=== PATIENT | female | born 1945 | race Caucasian/White ===

== ENCOUNTER → 2017-08-25 | Outpatient (CLI) | payer MEDICARE, BC ==
[~2017-08-25] MED LIST: AUGMENTIN 875875 MG PO; NEXIUM20 M1 PO; PREDNISONE 20 M20 MG PO; VERAPAMIL E.R240 M1 PO; [UNRECOGNIZED DRUG - REMARK]
== END ==
LOC: M.RAD 09:38
DX: Z12.31 Encounter for screening mammogram for malignant neoplasm of breast (principal)

== ENCOUNTER → 2018-08-17 | Outpatient (CLI) | payer MEDICARE, BC | LOC: M.RAD 09:16 | DX: Z12.31 Encounter for screening mammogram for malignant neoplasm of breast (principal) ==

== ENCOUNTER → 2018-08-22 | Outpatient (CLI) | payer MEDICARE, BC | LOC: M.ULTRA 09:03 | DX: N64.89 Other specified disorders of breast (principal) ==

== ENCOUNTER → 2018-08-24 | Outpatient (CLI) | payer MEDICARE, BC | LOC: M.ULTRA 08:30 | DX: N64.89 Other specified disorders of breast (principal) ==

== ENCOUNTER → 2018-08-29 | Outpatient (CLI) | payer MEDICARE, BC | LOC: M.MRI 07:57 | DX: N63.22 Unspecified lump in the left breast, upper inner quadrant (principal); N63.24 Unspecified lump in the left breast, lower inner quadrant; N63.23 Unspecified lump in the left breast, lower outer quadrant; N63.21 Unspecified lump in the left breast, upper outer quadrant; N63.10 Unspecified lump in the right breast, unspecified quadrant ==

== ENCOUNTER → 2018-09-03 | Outpatient (CLI) | payer MEDICARE, BC ==
--- NOTE | 2018-09-06 10:06 | PATH ---
[address] [address] PATHOLOGY RPT PROCEDURE Name: CRYSTAL MANZANARES Room: [facility] ELEANOR Desmond#: [id number] Admission: 09/03/18 Date of : 45 Discharge: Report #: [id number] Path Case #: [id number] LCA Accession Number: [id number] . 01 Material submitted: . breast - RIGHT BREAST. Modifiers: right . 01 Clinical history: . 2.96 x 2.30 x 3.12 cm subareolar . 02 Diagnosis: Right breast, subareolar: - INFILTRATING DUCTAL ADENOCARCINOMA, HIGH-GRADE (III OF III), SPANNING 13 MM, IN ASSOCIATION WITH DUCTAL CARCINOMA IN SITU (DCIS), NUCLEAR GRADE III, COMEDO TYPE, HAVING CALCIFICATIONS. SEE COMMENT. (CLAUDIA:pit 09/05/2018) QTP/09/05/2018 . 02 Comment: Specimen type: Image guided core biopsies Tumor site: Right breast subareolar Tumor quantitation: Approximately 90% of tissues Histologic type: Ductal adenocarcinoma Histologic grade: High-grade (III of III) Tubules, nuclei and mitoses: 3, 3, 3 LVSI: Not identified Microcalcifications: Identified in DCIS Markers: Breast tumor profile pending Block: A2 . The tumor infiltrates prominently in nests having a basaloid appearance. High-grade DCIS, comedo type is seen well outside the confines of the infiltrating tumor in A2, suggesting extensive DCIS. Breast tumor profile studies are pending on A2 and will be the subject of an addendum report. Akiko (acting [facility] breast navigator) notified at approximately 1200 on . . Reviewed with Dr. Amanda Mullen who agrees with the diagnosis. (CLAUDIA:vida 09/05/2018) . 02 Electronically signed: . Nayan Long MD, Pathologist NPI- [id number] . 01 Gross description: . Received in formalin labeled "Crystal Manzanares, right breast, subareolar," are multiple needle cores of yellow-parker fibrofatty tissue measuring 2.6 x 2.4 x 0.5 cm in aggregate dimensions. The tissue [place] [address] PATHOLOGY RPT PROCEDURE Name: CRYSTAL MANZANARES Room: [facility] FRANCESCO Logan#: [id number] Admission: 09/03/18 Date of : 45 Discharge: Report #: [id number] Path Case #: [id number] in cassette A1 through A3. The cold ischemic time is 10 minutes. The total formalin fixation time is 26 hours and 46 minutes. (TSD; 09/03/2018) TOB/TOB . 02 Pathologist provided ICD-10: C50.911, D05.11 . 02 CPT . 602449 Specimen Comment: A courtesy copy of this report has been sent to Specimen Comment: [phone], , . Specimen Comment: Report sent to ,DR PALMER / DR PENNY Performed at: [address], [place], [place] [id number] MD Cornelio Nix MD Phone: [phone] Performed at: 02 [facility] [address], [place], [place] [id number] MD Nayan Long MD Phone: [phone]
== END | disposition home or self-care (01) ==
LOC: M.ULTRA 12:18
DX: C50.911 Malignant neoplasm of unspecified site of right female breast (principal); Z88.8 Allergy status to other drugs, medicaments and biological substances; Z79.899 Other long term (current) drug therapy

== ENCOUNTER → 2018-10-01 | Outpatient (CLI) | payer MEDICARE, BC ==
[~2018-10-01] MED LIST changes: +CIPRO500 MG PO; +CRESTOR5 MG PO; +FLAGYL500 M1 PO; +LISINOPRIL-HCT1 EACH PO; +LOPRESSOR50 PO; +OMEPRAZOLE 20 M20 M1 PO; +XALATAN2.5 ML OPHTHALMIC
[2018-10-01 09:21] LABS: CREATININE 0.9 mg/dL (0.6-1.3)
== END ==
LOC: M.LAB 09-26 11:06
PROVIDERS: Surgery
DX: K76.9 Liver disease, unspecified (principal); I72.8 Aneurysm of other specified arteries; R91.1 Solitary pulmonary nodule

== ENCOUNTER 2018-10-09 07:35 | Observation (INO) | payer MEDICARE, BC ==
[~2018-10-09] VITALS: Ht 167.6 cm; Wt 86.6 kg
--- NOTE | ~2018-10-09 | H ---
[address] [address] HISTORY AND PHYSICAL Name: CELSO SMILEY Eliza Room: [address] Vimal Logan#: [id number] Admission: 10/09/18 Attend Phys: Funmi Navarrete DO Discharge: 10/10/18 Date of : 45 Report #: [id number] THIS REPORT FOR: //name// Please refer to the History and Physical performed in the physician's office. By: 1203Medical Records Staff LANI /LACI
[2018-10-09 08:04] LABS: HEMATOCRIT 41.6 % (37.0-47.0); HEMOGLOBIN 14.3 gm/dL (12.0-15.0); MCH 30.8 pg (26.0-34.0); MCHC 34.3 g/dL (28.0-37.0); MCV 89.7 fL (80.0-100.0); MPV 8.3 fl. (7.2-11.1); RBC 4.64 mil/uL (4.20-5.00); RDW-CV 12.1 % (10.5-14.5); WBC 8.2 thou/uL (4.0-11.0)
[2018-10-09 08:10] LABS: CALCIUM 8.9 mg/dL (8.5-10.1); POTASSIUM 3.4 mmol/L (3.5-5.1)
[2018-10-09 08:15] LABS: ALBUMIN 3.7 g/dL (3.4-5.0); TOTAL BILIRUBIN 0.6 mg/dL (<0.1-1.0); TOTAL PROTEIN 7.2 g/dL (6.4-8.2)
--- NOTE | 2018-10-09 11:02 | EKG ---
[place] [address] ELECTROCARDIOGRAM REPORT Name: CELSO SMILEY Room: [facility]#: [id number] Admission: 10/09/18 Attend Phys: Funmi Navarrete DO Discharge: Date of : 45 Report #: [id number] THIS REPORT FOR: //name// [facility] Test Date: 2018-10-09 Test Time: 07:59:51 Pat Name: CELSO SMILEY Department: Room: Gender: F Hat Liner: QI : 1945 Requested By: Funmi Navarrete Order Number: [id number] Reading MD: Ruy Romano Measurements Intervals [place] Rate: 55 P: 58 CT: 170 QRS: -22 QRSD: 94 T: 13 QT: 462 QTc: 442 Interpretive Statements Sinus rhythm Borderline left axis deviation RSR' in V1 or V2, right VCD or RVH Compared to ECG 05/15/2009 15:52:54 Right ventricular hypertrophy now present RSR' in V1 or V2 now present Electronically Signed On 10-09-2018 11:01:52 CDT by Ruy Romano [email or web address] <ELECTRONICALLY SIGNED> By: Ruy Romano MD, FACC 10/09/18 1101 0759 [id number] Ruy Romano MD, [facility] /EPI
[2018-10-09 14:58] VITALS: BP 148/82
--- NOTE | 2018-10-09 16:04 | NUR ---
PT ARRIVED FROM PACU ABOUT 1435. A&Ox4. VITALS STABLE. ON RA. DRAINS ON L AND R SIDES OF CHEST PATENT, DRAINING. IV PATENT. UP WITH ASSIST OF 1 TO BATHROOM. DENIED N/V. DENIED PAIN MEDS. DRESSING C/D/I. SUPPORT BRA IN PLACE. FALL PRECAUTIONS IN PLACE. CALL LIGHT WITHIN REACH. WILL CONTINUE TO MONITOR.
[2018-10-09 16:30] VITALS: BP 139/70
[2018-10-09 20:05] VITALS: BP 123/60
[2018-10-09 23:56] VITALS: BP 111/49
[2018-10-10 04:00] VITALS: BP 128/57
--- NOTE | 2018-10-10 05:20 | NUR ---
PT SLEPT WELL ON AND OFF OVERNIGHT. HAS DENIED NEED FOR PAIN MED. R AND L JOSE CHEST DRAINS DRAINING SEROSANG FLUID. CAPNO ON AND OPERATING. IVF INFUSING PER PUMP. UP WITH ASSIST TO BR. SURGICAL ALEX GAUZE AND BRA CDI, ICE PACK PRN. TOLERATING CRACKERS AND FLUIDS WITHOUT N/V. NO LABS THIS MORNING. RECEIVING SCHEDULED TYLENOL. VOIDING WITHOUT DIFFICULTY. ABLE TO USE CALL LITE AND MAKE NEEDS KNOWN.
[2018-10-10 08:10] VITALS: BP 118/57
--- NOTE | 2018-10-10 10:53 | NUR ---
SW met with pt to complete initial assessment, introduce self, and SW role. Pt alert, oriented, pleasant. Pt lives at home with her . Pt son available to provide pt ride home. [place] care and bilateral drains; pt agreeable to HH services follow up and did not have a preference. SW discussed HH options and pt choice for [facility] services, SW faxed referral face sheet and H & P, orders to be faxed when available. [facility] [phone] fax [phone]
[2018-10-10 11:08] VITALS: BP 118/57
[2018-10-10 11:56] VITALS: BP 118/57
[2018-10-10 16:00] VITALS: BP 120/66
--- NOTE | 2018-10-10 16:06 | NUR ---
PT.FEELING BETTER AND WILL MOST LIKELY BE DISCHARGED THIS AFTERNOON. RN CALLING FOR DISCHARGE ORDERS. [facility] NUM[facility] [phone]. SHE WILL FAX DISCHARGE ORDERS TO [facility].
[2018-10-10] MEDS ORDERED: ROXICODONE5 M2 PO (17:07)
--- NOTE | 2018-10-10 18:19 | NUR ---
PT DISCHARGED AND LEFT UNIT AT 1820 WITH NURSING STAFF AND TO HOME WITH HOME HEALTH. DRESSING C/D/I. JOSE DRAINS PATENT. IV OUT. PT STABLE UPON DISCHARGE. PAPER SCRIPTS AND CARE NOTES GIVEN.
--- NOTE | 2018-10-14 11:10 | OP ---
[address] [address] OPERATIVE REPORT Name: CELSO SMILEY Room: [address] Vimal Logan#: [id number] Admission: 10/09/18 Attend Phys: Funmi Navarrete DO Discharge: 10/10/18 Date of : 45 Report #: [id number] THIS REPORT FOR: //name// CC: Funmi Navarrete Nikole Rubi DATE OF SERVICE: 10/09/2018 PREPROCEDURE DIAGNOSES: Right breast cancer, left breast mass, right chest wall, mole. POSTOPERATIVE DIAGNOSES: Right breast cancer, left breast mass, right chest wall, mole. SURGEON: Funmi Navarrete DO CO-SURGEON: Maia Jimenez, PGY-2 FINDINGS: Large, firm palpable mass in the subareolar area. OPERATION PERFORMED: Bilateral mastectomy and a right superficial sentinel lymph node dissection, excision of right chest wall mole. ANESTHESIA: LMA and local. ESTIMATED BLOOD LOSS: 25 mL. SPECIMENS: Bilateral breast, right sentinel lymph node, right chest wall mole. COMPLICATIONS: None. CONDITION: Stable. DISPOSITION: PACU to the floor. HISTORY OF PRESENT ILLNESS: The patient is a very pleasant female who presented to my office with a right breast mass. The mass was in the subareolar area and was firm and palpable. She underwent a biopsy of this which did confirm right breast cancer. In addition, she had a suspicious appearing left breast mass as well. She was seen by Oncology and Radiation Oncology and thereafter decided to proceed with a bilateral mastectomy and a right sentinel lymph node excision. In addition, she has a small mole or seborrheic keratosis on the upper right chest wall. She was consented for surgery. Risks were discussed to include bleeding, infection, pain, scar formation, need for further surgery, injury to nerves, arteries or veins causing chronic pain, numbness or swelling and risks of general anesthesia. The patient understood [place] [address] OPERATIVE REPORT Name: CELSO SMILEY Room: [address] Vimal Logan#: [id number] Admission: 10/09/18 Attend Phys: Funmi Navarrete DO Discharge: 10/10/18 Date of : 45 Report #: [id number] proceed. DESCRIPTION OF PROCEDURE: The patient initially presented to preop and was then taken to radiology where she underwent a right breast nuclear medicine injection. She was then taken preop where she underwent informed consent. She was then taken to the OR where she was laid supine on the operating room table. SCDs were placed on bilateral lower extremities. Antibiotics were given in the perioperative period. General LMA anesthesia was induced by Anesthesia without difficulty. A 5 mL of Lymphazurin blue dye were injected in the right periareolar area. Bilateral breasts and axilla were prepped and draped in standard sterile fashion. Timeout was performed to verify the patient and procedure. We began with the left breast, which was the noncancerous side are clavicle, sternum, inframammary fold and latissimus dorsi were marked out bilaterally. Elliptical incisions were then marked out bilaterally as well. A 20 mL of 0.5% Marcaine were injected along the planned incisions on the left. Incisions were made with a #10 blade. Cautery was used for hemostasis. We then began forming flaps initially moving superiorly towards the clavicle, medially to the sternum, inferiorly to the inframammary fold and laterally to the latissimus dorsi. Allis clamps were used to gently elevate the breast tissue off the pectoralis and the breast tissue was then amputated from the underlying pectoralis fascia. Specimen was marked in the superior and lateral direction and was handed off for permanent pathology. Hemostasis was assured. Wound was copiously irrigated. It was then gently packed with a moistened lap and covered with a blue towel while we turned our attention to the right side. A 20 mL of 0.5% Marcaine were injected along the planned incision. We then moved in the same fashion as on the left side forming our incision with #15 blade. Cautery was used for hemostasis. Cautery was then used to formulate our flaps again moving superiorly to the clavicle, medially to the sternum, inferiorly to the inframammary fold and laterally to the latissimus dorsi. Breast tissue was amputated from the underlying pectoralis fascia utilizing cautery. Specimen was once again marked in the superior and lateral direction before it was handed off. The nipple was interrogated using the Neoprobe and the highest uptake we achieved was approximately 4300. Specimen was then handed off for permanent pathology. Our axilla was then interrogated. We had very good uptake just inside the axillary fat pad. In addition, there was a clear blue line of lymphatics heading straight to a fairly good sized sentinel lymph node. This area was tied, gently dissected free using a combination of blunt and cautery dissection out of the field. The highest uptake on this lymph node was 1200. This was then marked as the right superficial sentinel lymph node and was handed off for permanent pathology. Hemostasis was assured within this wound as well. Wound was also copiously irrigated until clear. We then took a moment to excise what appeared to be a small right seborrheic keratosis just along the right clavicle. It was not sent for permanent pathology. Porsha was then sprinkled along both wounds, bilateral 15-Turkish JOSE drains were placed through the lower flaps. Both wounds were then closed in a layered fashion using deep and superficial stitches of 3-0 Vicryl in inverted [place] [address] OPERATIVE REPORT Name: CELSO SMILEY Room: [address] Vimal Logan#: [id number] Admission: 10/09/18 Attend Phys: Funmi Navarrete DO Discharge: 10/10/18 Date of : 45 Report #: [id number] were closed with running 4-0 Monocryl. Wounds were then cleansed and covered with skin glue. Drains were sutured into place using nylon. The drains were then covered with 4 x 4's and a Tegaderm. The patient was then allowed to wake from anesthesia, was extubated and transported to the recovery room with no further difficulties. Surgical bra was placed in the OR. <ELECTRONICALLY SIGNED> By: Funmi Nvaarrete DO 10/14/18 1110 0931 1002Chcosme Navarrete DO /nt
--- NOTE | 2018-10-15 17:06 | PATH ---
[address] [address] PATHOLOGY RPT PROCEDURE Name: CRYSTAL MANZANARES Room: [address] Vimal Logan#: [id number] Admission: 10/09/18 Date of : 45 Discharge: 10/10/18 Report #: [id number] Path Case #: [id number] LCA Accession Number: [id number] . 01 Material submitted: . PART A: breast - LEFT BREAST, LONG LATERAL, SHORT SUPERIOR. Modifiers: left, lateral, superior PART B: breast - RIGHT BREAST, LONG LATERAL, SHORT SUPERIOR. Modifiers: right, lateral, superior PART C: lymph node - RIGHT SENTINEL LYMPH NODE. Modifiers: right . 01 Clinical history: . Infiltrating ductal carcinoma, right breast . 02 Diagnosis: A. Left breast: - Benign breast including skin with fibroadenoma, fibrosis, usual ductal epithelial hyperplasia and mild chronic inflammation and scattered luminal calcifications, negative for atypia. . B. Right breast: - INFILTRATING DUCTAL ADENOCARCINOMA, HIGH GRADE (III/III), SPANNING 21 MM, ADJACENT TO PRIOR BIOPSY SITE WITH ALL SURGICAL MARGINS FREE BY AT LEAST 25 MM. - Benign skin with seborrheic keratosis. (See comment). . C. Right sentinel lymph node: - One benign lymph node. (See comment). . (CLAUDIA:mml; 10/12/2018) QLM/10/12/2018 . 02 Comment: Surgical Pathology Cancer Case Summary . INVASIVE CARCINOMA OF THE BREAST: Resection . . Procedure ___ Total mastectomy (including nipple-sparing and skin-sparing mastectomy) . Specimen Laterality ___ Right . + Tumor Site + ___ [place] [address] PATHOLOGY RPT PROCEDURE Name: CRYSTAL MANZANARES Room: [address] Vimal Logan#: [id number] Admission: 10/09/18 Date of : 45 Discharge: 10/10/18 Report #: [id number] Path Case #: [id number] Tumor Size ___ Greatest dimension of largest invasive focus >1 mm (specify exact measurement) (millimeters): 21 mm . Histologic Type ___ Invasive carcinoma of no special type (invasive ductal carcinoma, not otherwise specified) . Histologic Grade ([place] Histologic Score) Glandular (Acinar)/Tubular Differentiation ___ Score 3 (<10% of tumor area forming glandular/tubular structures) . Nuclear Pleomorphism ___ Score 3 (vesicular nuclei, often with prominent nucleoli, exhibiting marked variation in size and shape, occasionally with very large and bizarre forms) . Mitotic Rate ___ Score 3 . Overall Grade ___ Grade 3 (scores of 8 or 9) . + Tumor Focality + ___ Single focus of invasive carcinoma . Ductal Carcinoma In Situ (DCIS) ___ Present + ___ Negative for extensive intraductal component (EIC) . + Size (Extent) of DCIS + Estimated size (extent) of DCIS is at least (millimeters) 1 mm + Number of blocks with DCIS: 1 + Number of blocks examined: 18 . + Architectural Patterns + ___ Comedo + ___ Cribriform . + Nuclear Grade + ___ Grade III (high) . + Necrosis + ___ Present, central (see comment) . + Lobular Carcinoma In Situ (LCIS) + ___ No LC[place] [address] PATHOLOGY RPT PROCEDURE Name: CRYSTAL MANZANARES Room: [address] Vimal Logan#: [id number] Admission: 10/09/18 Date of : 45 Discharge: 10/10/18 Report #: [id number] Path Case #: [id number] ___ Uninvolved by invasive carcinoma Specify closest margin (required only if <10mm): ___ Cannot be determined (explain): Not measured to specific margin,but at least 25 mm away from closest . DCIS Margins ___ Uninvolved by DCIS Specify closest margin (required only if <10mm): Unknown but at least 25 mm from closest . Regional Lymph Nodes ___ Uninvolved by tumor cells Number of Lymph Nodes Examined: 1 Number of [place] Nodes Examined: 1 . . Treatment Effect + ___ No known presurgical therapy . + Lymphovascular Invasion + ___ Not identified . + Dermal Lymphovascular Invasion + ___ Not identified . PATHOLOGIC STAGE CLASSIFICATION (pTNM, AJCC 8th Edition) . Primary Tumor (pT) ___ pT2:Tumor >20 mm but =50 mm in greatest dimension . Regional Lymph Nodes (pN) Modifier ___ (sn):[place] node(s) evaluated. . Category (pN) ___ pN0:No regional lymph node metastasis identified or ITCs only . Additional Pathologic Findings: Seborrheic keratosis . + Ancillary Studies + Breast Biomarker Testing Performed on Previous Biopsy Performed previously on [id number], A2 . + Estrogen Receptor (ER) + ___ Positive 95% . + Progesterone Receptor (PgR) + ___ Positive 8% [place] [address] PATHOLOGY RPT PROCEDURE Name: CRYSTAL MANZANARES Room: [address] Vimal Logan#: [id number] Admission: 10/09/18 Date of : 45 Discharge: 10/10/18 Report #: [id number] Path Case #: [id number] . + HER2 (by immunohistochemistry) Not over-expressed/1+, Ki-67 35% . + Microcalcifications + ___ Present in DCIS (See comment) + ___ Present in non-neoplastic tissue . + Clinical History + ___ Prior history of breast cancer identified on subareolar right breast core biopsies showing infiltrating ductal adenocarcinoma, high grade, spanning 13 mm, associated with ductal carcinoma in situ nuclear grade 3, comedo type with calcifications ([id number]). . (CLAUDIA:[facility]; 10/12/2018) . . . COMMENT: Only a single focus of cribriform DCIS is seen in the mastectomy specimen (B1), although the prior subareolar core biopsy also showed high grade DCIS comedo type and associated with calcifications. The invasive tumor is seen to invade smooth muscle of the nipple areolar complex without DCIS seen in nipple ducts and without involvement of skin or dermal lymphatics. Properly-controlled keratin AE1/AE3 stains performed on C1 and C2 reveal no evidence of metastatic tumor. . (CLAUDIA:[facility]; 10/12/2018) . 02 Electronically signed: . Nayan Long MD, Pathologist NPI- [id number] . 01 Gross description: . A. Received in formalin labeled" Crystal Manznaares, left breast, long lateral, short superior ", is an oriented left simple mastectomy specimen weighing 1164 g and measuring 23 x 18 x 5.5 cm, with an overlying luis-white ellipse of skin, 22 x 12.5 cm containing a 4.7 x 4.2 cm nipple-areola complex with a 0.7 cm in diameter everted nipple. The deep margin is covered by smooth fascia with no skeletal muscle present. The specimen is oriented with sutures: Short suture = superior and long suture = lateral. The specimen is inked as follows: anterior/superior = blue, anterior/inferior = green and deep black. The specimen is serial sectioned from medial to lateral to reveal a parker-white, indurated area in the central portion. The remaining parenchyma is predominantly yellow, lobulated fatty, with parker-white fibrous strands interspersed in the approximate ratio of 70:30. Representatively submitted as follows: A1. [place] [address] PATHOLOGY RPT PROCEDURE Name: CRYSTAL MANZANARES Room: [address]#: [id number] Admission: 10/09/18 Date of : 45 Discharge: 10/10/18 Report #: [id number] Path Case #: [id number] A2-A6. Fibrous tissue, Central. A7 - A8. Upper outer quadrant. A9-A10. Lower outer quadrant. A11-A12. Lower inner quadrant. A13-A14. Upper inner quadrant. Specimen excised at: 1106 on 10/09/18, placed in formalin at: 1111 on 10/09/18, formalin exposure: Approximately 36 hours and 29 minutes. . After initial consultation, additional section from each quadrant is submitted as follows: A15. Upper outer quadrant. A16. Lower outer quadrant. A17. Lower inner quadrant. A18. Upper inner quadrant. ([facility]; 10/11/2018) . B. Received in formalin labeled"Leighton Tonya, right breast, long lateral, short superior ", is an oriented right simple mastectomy specimen weighing 1088 g and measuring 22 x 21 x 4.5 cm, with an overlying luis-white ellipse of skin, 20 x 16.5 cm containing a 6.0 x 6.0 cm nipple-areola complex with a 1.0 cm in diameter flat and crusted nipple. The areola and surrounding skin is covered by purple dye. There is a dome-shaped, verrucous lesion measuring 1.5 x 1.0 x 0.3 cm, that is 9.0 cm lateral to the nipple and 0.8 cm from the anterior inferior skin margin. The deep margin is covered by smooth fascia with no skeletal muscle present. The specimen is oriented with sutures: Long = lateral and short = superior. The specimen is inked as follows: anterior/superior = blue, anterior/inferior = green and deep black. Specimen is serial sectioned from lateral to medial to reveal a solid, hemorrhagic previous biopsy site/mass surrounded by fat necrosis, that is contiguous with the nipple and approximately measuring 2.2 x 1.7 x 1.1 cm. This mass is greater than 2.5 cm from all the margins. The remaining parenchyma is predominantly yellow, lobulated fatty, with parker-white strands interspersed in the approximate ratio 70:30. Representatively submitted as follows: B1. Nipple and underlying soft tissue. B2. Skin, verrucous lesion. B3. Skin. B4- B9. Previous biopsy site/mass from medial to lateral. B10. Anterior superior margin closest to biopsy site/mass. B11. Medial margin closest to biopsy site/mass. B12. Anterior inferior margin closest to biopsy site/mass. B13. Lateral margin closest to biopsy site/mass B14. Deep margin closest to biopsy site/mass. B15 - B16. Upper inner quadrant. B17-B18. Lower inner quadrant. B19-B20. Lower outer quadrant. B21-B22. Upper outer quadrant. Specimen excised at: 1152 on 10/09/18, placed in formalin at: 1156 [place] [address] PATHOLOGY RPT PROCEDURE Name: CRYSTAL MANZANARES Room: [address] Vimal Logan#: [id number] Admission: 10/09/18 Date of : 45 Discharge: 10/10/18 Report #: [id number] Path Case #: [id number] 10/09/18, formalin exposure: Approximately 35 hours and 44 minutes. . After initial consultation, additional section from each quadrant is submitted as follows: B23. Upper inner quadrant. B24. Lower inner quadrant. B25. Lower outer quadrant. B26. Upper outer quadrant. ([facility]; 10/11/2018) . C. The specimen is received in formalin, labeled "Crystal Manzanares, right sentinel lymph node", is a yellow lobulated adipose tissue measuring 3.3 x 2.0 x 1.7 cm within which is a luis-pink, rubbery lymph node measuring 2.0 x 1.0 x 0.7 cm. The lymph node is serially sectioned and entirely submitted in C1-C2. ([facility]; 10/10/2018) SHS/SHS . 02 Pathologist provided ICD-10: D24.2, N60.32, N60.92, N61.0, C50.911, L82.1 . 02 CPT . 706673, 582754, 488382, Z21904 Specimen Comment: A courtesy copy of this report has been sent to Specimen Comment: [phone], . Specimen Comment: Report sent to / DR XIONG Performed at: 01 [facility] [address], [place], [place] [id number] MD Cornelio Nix MD Phone: [phone] Performed at: [address] [facility] [address] [id number] MD Nayan Long MD Phone: [phone]
== END 2018-10-10 18:20 | disposition home or self-care (01) ==
LOC: M.SUR 07:35 → M.NUC 09:00 → M.SUR 09:00 → EDSTATUS 09:00 → M.TBA 12:51 → M.ORTHSURG 12:51
PROVIDERS: ADMIT Surgery
DX: C50.911 Malignant neoplasm of unspecified site of right female breast (principal); Z88.5 Allergy status to narcotic agent

== ENCOUNTER 2018-11-16 15:26 | Emergency (ER) | payer MEDICARE, BC ==
[~2018-11-16] VITALS: Ht 167.6 cm; Wt 85.3 kg
[~2018-11-16 15:26] MED LIST changes: +ROXICODONE5 M2 PO
[2018-11-16] MEDS ORDERED: [UNRECOGNIZED DRUG - OTHER] (15:37)
[2018-11-16] MEDS ORDERED: CYTOXAN (15:38)
[2018-11-16 16:08] LABS: HEMATOCRIT 40.3 % (37.0-47.0); HEMOGLOBIN 13.7 gm/dL (12.0-15.0); MCH 30.6 pg (26.0-34.0); MCV 90.1 fL (80.0-100.0); MPV 9.1 fl. (7.2-11.1); NUCLEATED RBCS 0 /100WBC; PLATELET COUNT* 294 thou/uL (150-400); RBC 4.47 mil/uL (4.20-5.00); RDW-CV 12.8 % (10.5-14.5); WBC 13.4 thou/uL (4.0-11.0)
[2018-11-16 16:17] LABS: ANION GAP 11 mmol/L (7-16); BUN 26 mg/dL (7-18); CALCIUM 8.8 mg/dL (8.5-10.1); CHLORIDE 99 mmol/L (98-107); CO2 29 mmol/L (21-32); GLUCOSE 105 mg/dL (70-99); POTASSIUM 3.4 mmol/L (3.5-5.1); SODIUM 139 mmol/L (136-145)
[2018-11-16 16:18] LABS: PROTIME 10.2 Seconds (9.20-11.50)
[2018-11-16 16:28] LABS: ALBUMIN 3.9 g/dL (3.4-5.0); ALKALINE PHOSPHATASE 73 U/L (46-116); NT-PRO BRAIN NAT PEPTIDE 518 pg/mL (<300); SGOT 20 U/L (15-37); SGPT 25 U/L (30-65); TOTAL BILIRUBIN 0.3 mg/dL (<0.1-1.0); TOTAL PROTEIN 7.2 g/dL (6.4-8.2); TROPONIN-I LEVEL <0.06 ng/mL (<0.06)
[2018-11-16 16:30] LABS: ABSOLUTE LYMPHOCYTES 1.5 thou/uL (0.8-5.3); ABSOLUTE MONOCYTES 0.5 thou/uL (0.0-1.2); ABSOLUTE NEUTROPHILS 11.4 thou/uL (1.6-8.1); PLATELET ESTIMATE ADEQUATE
[2018-11-16 17:51] VITALS: BP 167/83
--- NOTE | 2018-11-19 13:01 | EKG ---
[place] [address] ELECTROCARDIOGRAM REPORT Name: CELSO SMILEY Room: [facility]#: [id number] Admission: 11/16/18 Attend Phys: Discharge: 11/16/18 Date of : 45 Report #: [id number] THIS REPORT FOR: //name// [facility] ED Test Date: 2018-11-16 Test Time: 15:38:28 Pat Name: CELSO SMILEY Department: Room: Gender: F Planning Feeder: : 1945 Requested By: Reyes Rodriguez Order Number: [id number] MD: Jaime Resendiz Measurements Intervals Echo Rate: 62 P: 48 PA: 149 QRS: -14 QRSD: 98 T: 13 QT: 480 QTc: 488 Interpretive Statements Sinus rhythm Probable left atrial enlargement RSR' in V1 or V2, right VCD or RVH Borderline prolonged QT interval Compared to ECG 10/09/2018 07:59:51 No significant changes Electronically Signed On 11-19-2018 13:01:34 CDT by Jaime Resendiz [email or web address] <ELECTRONICALLY SIGNED> By: Jaime Resendiz MD, [facility] 11/19/18 1301 1538 1538 Jaime Resendiz MD, [facility] /EPI
== END 2018-11-16 17:52 | disposition home or self-care (01) ==
LOC: M.ERS 15:26
PROVIDERS: Emergency Medicine
DX: R06.02 Shortness of breath (principal); C50.912 Malignant neoplasm of unspecified site of left female breast; C50.911 Malignant neoplasm of unspecified site of right female breast; I10 Essential (primary) hypertension; E78.5 Hyperlipidemia, unspecified; K21.9 Gastro-esophageal reflux disease without esophagitis; Z98.890 Other specified postprocedural states; Z86.711 Personal history of pulmonary embolism; Z90.13 Acquired absence of bilateral breasts and nipples; Z88.5 Allergy status to narcotic agent

== ENCOUNTER 2018-11-22 20:19 | Inpatient (IN) | payer MEDICARE, BC ==
[~2018-11-22] VITALS: Ht 167.6 cm; Wt 86.8 kg
[~2018-11-22 20:19] MED LIST changes: +CYTOXAN; +[UNRECOGNIZED DRUG - OTHER]
[2018-11-22 20:29] VITALS: BP 148/76
[2018-11-22 21:08] LABS: HEMATOCRIT 36.3 % (37.0-47.0); HEMOGLOBIN 12.7 gm/dL (12.0-15.0); MCH 31.2 pg (26.0-34.0); MCV 89.3 fL (80.0-100.0); MPV 8.8 fl. (7.2-11.1); NUCLEATED RBCS 1 /100WBC; PLATELET COUNT* 211 thou/uL (150-400); RBC 4.07 mil/uL (4.20-5.00); RDW-CV 12.5 % (10.5-14.5)
[2018-11-22 21:09] LABS: WBC 1.9 thou/uL (4.0-11.0)
[2018-11-22 21:16] LABS: CALCIUM 8.4 mg/dL (8.5-10.1); CREATININE 0.9 mg/dL (0.6-1.3)
[2018-11-22 21:17] LABS: INR 1.1; PROTIME 11.1 Seconds (9.20-11.50)
[2018-11-22 21:26] LABS: ALBUMIN 2.9 g/dL (3.4-5.0); TOTAL BILIRUBIN 0.9 mg/dL (<0.1-1.0)
[2018-11-22 21:42] LABS: ABSOLUTE LYMPHOCYTES 1.3 thou/uL (0.8-5.3); ABSOLUTE MONOCYTES 0.4 thou/uL (0.0-1.2); ABSOLUTE NEUTROPHILS 0.2 thou/uL (1.6-8.1); ATYPICAL LYMPHS 6 %
[2018-11-22 21:43] LABS: ANISOCYTOSIS 1+; HYPOCHROMASIA 2+; PLATELET ESTIMATE ADEQUATE; TOXIC GRANULATION 1+
[2018-11-22 22:30] VITALS: BP 147/80
[2018-11-22 22:40] VITALS: BP 147/80
[2018-11-23] MEDS ORDERED: VENTOLIN HFA 1818 GM INH (02:44)
[2018-11-23 04:00] VITALS: BP 121/61
--- NOTE | 2018-11-23 05:35 | NUR ---
REPORT RECIEVED FROM ER. PT ORIENTED ROOM, CALL LIGHT SHOWN, FALL AGREEMENT GONE OVER, PT STATED UNDERSTANDING. ADMISSION DOCUMENTED. MEDS GIVEN PER E-MAR. ORDER FOR TYLENOL RECIEVED FOR PT'S BACK PAIN AND HEADACHE. POTASSIUM REPLACED. WILL CONTINUE WITH PLAN OF CARE.
[2018-11-23 08:15] VITALS: BP 123/64
--- NOTE | 2018-11-23 13:51 | NUR ---
PT.ALERT AND ORIENTED. LIVES WITH . USES A CANE FOR AMBULATION NEEDED. IS NORMALLY INDEPENDENT AT HOME. WEAK AT TIMES. SHE WAS A WEEK POST CHEMO TX AND SHE STARTED RUNNING FEVER AT HOME. HAD AGUEDA.MASTECTOMIES IN OCT. USED [facility] AT THAT TIME. SHOULD NOT HAVE ANY NEEDS AT DISCHARGE.
--- NOTE | 2018-11-23 16:17 | NUR ---
PATIENT HAD EPISODES OF DIARRHEA THIS SHIFT, STOOL SAMPLE WAS SENT FOR STOOL CULTURE. PATIENT NOTIFIED THAT STOOL SAMPLE WAS NEEDED FOR CDIFF, ISOLATION PRECUATIONS PLACED AND PATIENT NOTIFIED. IVF RESTARTED TO LEFT FORARM, IVF AND SCHED ABX INFUSING ORDERED. UP AD MANUELITO. PRN ZOFRAN GIVEN X 1 THIS SHIFT FOR NAUSEA. NO COMPLAINTS OF PAIN.
[2018-11-23 16:32] VITALS: BP 133/66
--- NOTE | 2018-11-23 20:10 | EKG ---
[place] [address] ELECTROCARDIOGRAM REPORT Name: CLESO SMILEY Room: [address] ADM IN [facility].#: [id number] Admission: 11/22/18 Attend Phys: Francoise Pruitt MD Discharge: Date of : 45 Report #: [id number] THIS REPORT FOR: //name// [facility] ED Test Date: 2018-11-22 Test Time: 21:03:55 Pat Name: CELSO SMILEY Department: Room: [facility] Gender: F Group Sales Manager: : 1945 Requested By: Livia Martínez Order Number: [id number] MD: Dick Flynn Measurements Intervals [place] Rate: 98 P: 8 ID: [id number] QRS: -37 QRSD: 90 T: 1 QT: 368 QTc: 470 Interpretive Statements Sinus rhythm Left axis deviation RSR' in V1 or V2, right VCD or RVH Borderline T abnormalities, anterior leads Compared to ECG 11/16/2018 15:38:28 Left-axis deviation now present T-wave abnormality now present Electronically Signed On 11-23-2018 20:09:44 CDT by Dick Flynn [email or web address] <ELECTRONICALLY SIGNED> By: Gay Flynn MD, [facility] 11/23/182008 02 02 Gay Flynn MD, [facility] /EPI
[2018-11-23 21:10] VITALS: BP 137/66
[2018-11-24 04:11] LABS: ABSOLUTE EOSINOPHILS 0.1 thou/uL (0.0-0.7); ABSOLUTE LYMPHOCYTES 2.5 thou/uL (0.8-5.3); ABSOLUTE MONOCYTES 0.7 thou/uL (0.0-1.2); ABSOLUTE NEUTROPHILS 9.8 thou/uL (1.6-8.1); BASOPHILS 0.2 %; EOSINOPHILS 0.5 %; HEMATOCRIT 32.5 % (37.0-47.0); HEMOGLOBIN 10.9 gm/dL (12.0-15.0); LYMPHOCYTES 19.1 %; MCH 30.3 pg (26.0-34.0); MCHC 33.6 g/dL (28.0-37.0); MCV 90.2 fL (80.0-100.0); MONOCYTES 5.2 %; MPV 8.6 fl. (7.2-11.1); NUCLEATED RBCS 0 /100WBC; PLATELET COUNT* 208 thou/uL (150-400); RDW-CV 12.5 % (10.5-14.5)
[2018-11-24 04:27] LABS: CALCIUM 8.1 mg/dL (8.5-10.1); CREATININE 0.8 mg/dL (0.6-1.3); POTASSIUM 3.7 mmol/L (3.5-5.1)
[2018-11-24 04:44] LABS: WBC 13.1 thou/uL (4.0-11.0)
--- NOTE | 2018-11-24 06:25 | NUR ---
PATIENT REPORTED NO PAIN. GAVE 1 DOSE VANC IV AND CONTINUED FLUIDS. SHE TOOK A SHOWER AND WAS UP THROUGH MOST OF THE NIGHT. RIGHT LIMB ALERT. DID NOT HAVE A STOOL FOR SENDING TO THE LAB. WILL CONTINUE TO MONITOR
[2018-11-24 07:35] VITALS: BP 150/72
--- NOTE | 2018-11-24 17:05 | NUR ---
PT REMAINED ALERT AND ORIENTED. PT RESTING IN ROOM. IV ABX GIVEN ORDERED. PT C/O NAUSEA ONCE THIS SHIFT, MEDS GIVEN ORDERED. PT DENIES ANY FURTHER NEEDS AT THIS TIME. FALL RISK PRECAUTIONS IN PLACE. HOURLY ROUNDING COMPLETED. WILL CONTINUE TO MONITOR.
[2018-11-24 20:00] VITALS: BP 147/66
[2018-11-25 04:42] LABS: ABSOLUTE LYMPHOCYTES 2.3 thou/uL (0.8-5.3); ABSOLUTE MONOCYTES 0.8 thou/uL (0.0-1.2); BASOPHILS 0.3 %; EOSINOPHILS 0.2 %; HEMATOCRIT 35.2 % (37.0-47.0); HEMOGLOBIN 11.8 gm/dL (12.0-15.0); LYMPHOCYTES 13.7 %; MCH 30.1 pg (26.0-34.0); MCHC 33.4 g/dL (28.0-37.0); MONOCYTES 4.4 %; MPV 8.4 fl. (7.2-11.1); NUCLEATED RBCS 0 /100WBC; PLATELET COUNT* 225 thou/uL (150-400); POLYS 81.4 %; RBC 3.91 mil/uL (4.20-5.00); WBC 17.2 thou/uL (4.0-11.0)
[2018-11-25 04:52] LABS: CALCIUM 8.7 mg/dL (8.5-10.1); CREATININE 0.8 mg/dL (0.6-1.3); POTASSIUM 3.1 mmol/L (3.5-5.1)
--- NOTE | 2018-11-25 05:05 | NUR ---
PATIENT ALERT/ORIENTED X4, PLEASANT. PT DENIES PAIN/NAUSEA/VOMITING. PT UP AD MANUELITO IN ROOM AND TO BATHROOM. PT SAID SHE HAS HAD 'A FEW' LOOSE STOOLS YESTERDAY AND LAST NIGHT. PT IS ON ROOM AIR, LUNG SOUNDS CLEAR. PT WITH ANTIBIOTICS INFUSING PER DR ORDER. PT REMAINS IN SPECIAL CONTACT ISOLATION. WILL CONTINUE TO MONITOR.
[2018-11-25 07:15] VITALS: BP 151/77
[2018-11-25 08:35] VITALS: BP 151/77
[2018-11-25] MEDS ORDERED: CIPRO500 M1 PO (08:35)
--- NOTE | 2018-11-25 13:23 | NUR ---
PT REMAINED ALERT AND ORIENTED. IV REMOVED. PRESCRIPTIONS, CARE NOTES, AND DISCHARGE INSTRUCTIONS GIVEN. PT LEFT AMBULATORY WITH NURSING STAFF AND SON TO HOME. FALL RISK PRECAUTIONS IN PLACE. HOURLY ROUNDING COMPLETED.
--- NOTE | 2018-11-26 07:39 | CON ---
[address] [address] CONSULTATION Name: CELSO SMILEY Room: [address] IN ..#: [id number] Admission: 11/22/18 Attend Phys: Francoise Pruitt MD Discharge: 11/25/18 Date of : 45 Report #: [id number] THIS REPORT FOR: //name// CC: Francoise Pruitt Nikole Venegas Chayito Mckeon DATE OF SERVICE: 11/23/2018 INFECTIOUS DISEASE CONSULTATION ATTENDING PHYSICIAN: Dr. Pruitt. REASON FOR EVALUATION: Neutropenic fever. HISTORY OF PRESENT ILLNESS: Chart reviewed, patient examined. This is a 73-year-old woman with a recent history of breast cancer involving the right breast. She has undergone initial round of chemotherapy roughly 8 days ago. She notes throughout the entire course, has been complicated with apparent adverse drug effects, also more recently has developed progressive weakness, fevers, was evaluated over the course of last week or so at least 2 occasions; most recently yesterday, the prior day of admission, was found to be leukopenic with ANC of 200. Subsequently, developed what sounds like true rigors, shaking chills, high-grade temperatures in excess of 101 degrees Fahrenheit. She has had some degree of respiratory distress with some difficulty breathing. She notes does have a background of asthma that sometimes exacerbates. She has had some recent loose stools as well; initially had abdominal pain, this is resolved. She is not encephalopathic. She has had some headaches. Denies any sinus or teeth-related complaints. No sore throat. Does have generalized pain, she described the source as being stuck by needles. It was noted on evaluation, was febrile. Initial chest x-ray was otherwise unrevealing. Elevated blood sugar to 176, albumin 2.9, anion gap was only 9. CBC: ANC of 200. Lactic acid initially 2.2, repeat was 1.3. Blood cultures are pending. Empirically dosed with piperacillin and tazobactam. At this point, as noted above, she is not encephalopathic. ALLERGIES: MORPHINE AND CODEINE. MEDICINES: Currently include metoprolol, pantoprazole, enoxaparin, p.r.n. analgesics, antiemetics, taking a single dose of piperacillin/tazobactam. PAST MEDICAL HISTORY: As noted above, right-sided breast cancer, history of hypertension, left total knee arthroplasty, reflux, umbilical hernia repair, history of glaucoma, hyperlipidemia. SOCIAL HISTORY: Nonsmoker. No ethanol. [place] [address] CONSULTATION Name: CELSO SMILEY Room: [address] IN [facility].#: [id number] Admission: 11/22/18 Attend Phys: Francoise Pruitt MD Discharge: 11/25/18 Date of : 45 Report #: [id number] FAMILY HISTORY: Noncontributory. REVIEW OF SYSTEMS: Otherwise, unremarkable 10-point review of systems except noted above. PHYSICAL EXAMINATION: GENERAL: She is alert, cooperative, jtgg-na-nuekjozs distress. At this point, she is not encephalopathic. She is not overtly toxic-appearing, appears reasonably well nourished. VITAL SIGNS: Most recent temperature 98.4 with a T-max recorded here of 99.6, pulse 84, respirations 18, blood pressure 123/64. SKIN: Warm. There is no evident rash. HEENT: Normocephalic. Extraocular muscles are intact. NECK: Supple. LUNGS: Generally clear to auscultation. HEART: Regular. I do not appreciate a murmur. ABDOMEN: Soft, nontender and nondistended. There are no peritoneal signs. EXTREMITIES: No distal lower extremity edema. GENITOURINARY: Deferred. RECTAL: Deferred. LABORATORY DATA: Blood cultures sterile thus far. Serial lactic acid of 2.2 and 1.3. CBC: White count total of 1.9, ANC of 200, H and H 12.7 and 36.3, platelets of 211. Electrolytes: Sodium 137, potassium 3.0, chloride 99, bicarbonate is 29, anion gap of 9, BUN and creatinine 15 and 0.9, glucose of 179, AST of 16, ALT of 21, albumin of 2.9, total protein 6.0, estimated GFR of 61. Plain film of the chest is otherwise unremarkable. ASSESSMENT: Fevers in the setting of neutropenia. The patient has had recent initial round of chemotherapy for breast cancer and certainly would be concerned about possibility of occult pyogenic infection. We will continue antimicrobial therapy with specifically antibacterials. Did have some loose stools. If does persist, certainly, we will send off studies in addition to the blood cultures. At this point, there is no evidence of respiratory tract infection. See how she does clinically. Expectation is white count should be trending up in the next 1-3 days. <ELECTRONICALLY SIGNED> By: Maximo Orozco MD 11/26/18 [id number] Orozco MD /nt
== END 2018-11-25 13:25 | disposition home or self-care (01) | DRG 872 ==
LOC: M.ERS 20:19 → M.ORTHSURG 21:49 → M.TBA-ER 21:49 → M.ORTHSURG 22:37
PROVIDERS: Emergency Medicine; Internal Medicine; Internal Medicine Hematology & Oncology; ADMIT Internal Medicine
DX: A41.9 Sepsis, unspecified organism (principal); D70.9 Neutropenia, unspecified; Z96.652 Presence of left artificial knee joint; E78.5 Hyperlipidemia, unspecified; R19.7 Diarrhea, unspecified; I10 Essential (primary) hypertension; K21.9 Gastro-esophageal reflux disease without esophagitis; E87.6 Hypokalemia; E86.0 Dehydration; C50.919 Malignant neoplasm of unspecified site of unspecified female breast; R50.81 Fever presenting with conditions classified elsewhere; Z86.711 Personal history of pulmonary embolism; Z88.5 Allergy status to narcotic agent; Z90.13 Acquired absence of bilateral breasts and nipples

== ENCOUNTER → 2018-12-17 | Outpatient (CLI) | payer MEDICARE, BC ==
[~2018-12-17] MED LIST changes: +CIPRO500 M1 PO; +VENTOLIN HFA 1818 GM INH
== END ==
LOC: M.MRI 07:52
DX: C50.111 Malignant neoplasm of central portion of right female breast (principal); K76.9 Liver disease, unspecified; Z79.899 Other long term (current) drug therapy

== ENCOUNTER → 2019-04-10 | Outpatient (CLI) | payer MEDICARE, BC | LOC: M.LAB 07:38 → M.MRI 08:30 | DX: D73.4 Cyst of spleen (principal); K76.9 Liver disease, unspecified; N28.1 Cyst of kidney, acquired; M41.86 Other forms of scoliosis, lumbar region; Z98.890 Other specified postprocedural states ==

== ENCOUNTER → 2019-04-16 | Outpatient (CLI) | payer MEDICARE, BC | LOC: M.ULTRA 10-02 09:10 | DX: D73.4 Cyst of spleen (principal); K76.89 Other specified diseases of liver; C50.911 Malignant neoplasm of unspecified site of right female breast; D73.89 Other diseases of spleen ==

== ENCOUNTER → 2019-06-25 | Outpatient (CLI) | payer MEDICARE, BC ==
[2019-06-25 11:48] LABS: CREATININE 0.9 mg/dL (0.6-1.3)
== END ==
LOC: M.MRI 11:06
PROVIDERS: Internal Medicine Hematology & Oncology
DX: D73.4 Cyst of spleen (principal); K76.9 Liver disease, unspecified; N28.1 Cyst of kidney, acquired; M41.84 Other forms of scoliosis, thoracic region

== ENCOUNTER → 2019-10-15 | Outpatient (CLI) | payer MEDICARE, BC | LOC: M.RAD 14:42 | PROVIDERS: ATTEND Nurse Practitioner Family | DX: M85.88 Other specified disorders of bone density and structure, other site (principal); Z78.0 Asymptomatic menopausal state ==

== ENCOUNTER → 2020-03-04 | Outpatient (CLI) | payer MEDICARE, BC | LOC: M.ULTRA 10:00 | PROVIDERS: ATTEND Internal Medicine Hematology & Oncology | DX: K76.9 Liver disease, unspecified (principal) ==

== ENCOUNTER → 2020-04-30 | Outpatient (CLI) | payer MEDICARE, BC | LOC: M.RAD 14:23 | PROVIDERS: ATTEND Family Medicine | DX: M25.551 Pain in right hip (principal); C50.919 Malignant neoplasm of unspecified site of unspecified female breast; C78.7 Secondary malignant neoplasm of liver and intrahepatic bile duct; R93.89 Abnormal findings on diagnostic imaging of other specified body structures; Z88.8 Allergy status to other drugs, medicaments and biological substances ==

== ENCOUNTER → 2020-09-14 | Outpatient (CLI) | payer MEDICARE, BC | LOC: M.ULTRA 08:44 | PROVIDERS: ATTEND Internal Medicine Hematology & Oncology | DX: C50.919 Malignant neoplasm of unspecified site of unspecified female breast (principal); C78.7 Secondary malignant neoplasm of liver and intrahepatic bile duct ==